=== PATIENT | male | born 1935 | race Caucasian/White ===

== ENCOUNTER → 2019-01-21 | Outpatient (CLI) | payer OTHER, BC | LOC: ULTRA 14:07 | DX: E04.1 Nontoxic single thyroid nodule (principal) ==

== ENCOUNTER → 2019-02-01 | Outpatient (CLI) | payer OTHER, BC | LOC: CAT 14:15 | DX: M54.2 Cervicalgia (principal); R22.1 Localized swelling, mass and lump, neck ==

== ENCOUNTER → 2019-02-03 | Outpatient (CLI) | payer OTHER, BC | LOC: SPEECH 09:28 → RAD 09:28 | DX: R13.12 Dysphagia, oropharyngeal phase (principal); R49.0 Dysphonia ==

== ENCOUNTER → 2019-09-13 | Outpatient (CLI) | payer OTHER, BC | LOC: SJCVC 14:04 | PROVIDERS: ATTEND Internal Medicine Cardiovascular Disease | DX: R94.31 Abnormal electrocardiogram [ECG] [EKG] (principal); I11.9 Hypertensive heart disease without heart failure; I47.1 Supraventricular tachycardia; I63.9 Cerebral infarction, unspecified; I48.0 Paroxysmal atrial fibrillation; Z79.899 Other long term (current) drug therapy ==

== ENCOUNTER → 2019-09-27 | Outpatient (CLI) | payer OTHER, BC ==
[2019-09-27 11:54] VITALS: BP 150/75
--- NOTE | 2019-09-30 15:54 | P ---
[address] [address] PROCEDURE REPORT Name: KARLA FREY [facility] [id number] Admission: 09/27/19 Attend Phys: Gunner Garza MD Discharge: Date of : 39 Report #: [id number] THIS REPORT FOR: cc: Jose Trejo MD,Gunner Chaudhari MD, MD ~ CC: Gunner Trejo DATE OF SERVICE: 09/27/2019 PROCEDURE PERFORMED: Implantable loop recorder removal and reinsertion. PREOPERATIVE DIAGNOSES: 1. Supraventricular tachycardia. 2. Transient ischemic attack. DESCRIPTION OF PROCEDURE: The patient underwent informed consent. He was prepped and draped in sterile fashion. I injected lidocaine at the prior incision site. Incision was made. The old device was removed and the new device was injected. A single layer of suture was performed and surgical glue was placed to outer skin layer. The patient awoke neurologically and hemodynamically intact. No complications and no significant bleeding. The implanted device was a [employer] serial #[id number]. CONCLUSION: 1. Successful removal of implantable loop recorder. 2. Successful implantation of implantable loop recorder. <ELECTRONICALLY SIGNED> By: Gunner Garza MD 09/30/19 [id number] Gunner Garza MD /nt
== END | disposition home or self-care (01) ==
LOC: CATH 09:26
PROVIDERS: ATTEND Internal Medicine Cardiovascular Disease
DX: I47.1 Supraventricular tachycardia (principal); G45.9 Transient cerebral ischemic attack, unspecified

== ENCOUNTER → 2020-04-02 | Outpatient (CLI) | payer OTHER, BC | LOC: NUC 12:34 | PROVIDERS: ATTEND Internal Medicine | DX: M81.0 Age-related osteoporosis without current pathological fracture (principal) ==

== ENCOUNTER → 2020-04-10 | Outpatient (CLI) | payer OTHER, BC | LOC: SJCVC 11:12 | PROVIDERS: ATTEND Internal Medicine Cardiovascular Disease | DX: R94.31 Abnormal electrocardiogram [ECG] [EKG] (principal); I47.1 Supraventricular tachycardia; I48.0 Paroxysmal atrial fibrillation; I10 Essential (primary) hypertension; Z79.899 Other long term (current) drug therapy; Z86.73 Personal history of transient ischemic attack (TIA), and cerebral infarction without residual deficits ==

== ENCOUNTER → 2020-08-09 | Outpatient (CLI) | payer OTHER, BC | LOC: RAD 14:37 | PROVIDERS: ATTEND Internal Medicine | DX: M41.85 Other forms of scoliosis, thoracolumbar region (principal); M47.816 Spondylosis without myelopathy or radiculopathy, lumbar region; M43.16 Spondylolisthesis, lumbar region; M53.86 Other specified dorsopathies, lumbar region; I70.8 Atherosclerosis of other arteries ==

== ENCOUNTER → 2020-10-09 | Outpatient (CLI) | payer OTHER, BC | LOC: SJCVC 13:06 | PROVIDERS: ATTEND Internal Medicine Cardiovascular Disease | DX: R94.31 Abnormal electrocardiogram [ECG] [EKG] (principal); I11.9 Hypertensive heart disease without heart failure; I47.1 Supraventricular tachycardia; I48.0 Paroxysmal atrial fibrillation; D56.3 Thalassemia minor; Z86.73 Personal history of transient ischemic attack (TIA), and cerebral infarction without residual deficits; Z85.46 Personal history of malignant neoplasm of prostate; Z92.3 Personal history of irradiation; Z95.818 Presence of other cardiac implants and grafts; Z79.899 Other long term (current) drug therapy ==

== ENCOUNTER → 2021-04-11 | Outpatient (CLI) | payer OTHER, BC | LOC: SJCVC 12:39 | PROVIDERS: ATTEND Internal Medicine Cardiovascular Disease | DX: R94.31 Abnormal electrocardiogram [ECG] [EKG] (principal); I47.1 Supraventricular tachycardia; I48.0 Paroxysmal atrial fibrillation; I10 Essential (primary) hypertension; I63.9 Cerebral infarction, unspecified; Z79.899 Other long term (current) drug therapy ==